=== PATIENT | male | born 1985 | race Caucasian/White ===

== ENCOUNTER 2021-09-08 16:05 | Emergency (ER) | payer SELFPAY ==
[~2021-09-08] VITALS: Ht 177.8 cm; Wt 90.7 kg
== END 2021-09-08 18:21 | disposition home or self-care (01) ==
LOC: ER 16:12
DX: M25.531 Pain in right wrist (principal); G40.909 Epilepsy, unspecified, not intractable, without status epilepticus
CPT/HCPCS: 93005; 99284